=== PATIENT | female | born 1980 | race Caucasian/White ===

== ENCOUNTER 2017-04-28 07:47 | Day surgery (SDC) | payer BC ==
[2017-04-23 11:01] VITALS: BMI 19.6
[2017-04-28] MEDS ORDERED: LACTATED RINGERS SOLUTION 1,000 ML IV SCH (08:30)
[2017-04-28] MEDS ORDERED: oxyCODONE HCL 5 MG TABLET PO PRN (08:30)
[2017-04-28] MEDS ORDERED: ONDANSETRON 4 MG/2 ML VIAL IVPUSH PRN (08:30)
[2017-04-28] MEDS ORDERED: ACETAMINOPHEN 1000 MG/100 ML VIAL (NON FORMULARY) IVPB PRN (08:30)
--- NOTE | 2017-04-28 09:05 | HP ---
[facility]ellite [facility] - Chief Complaint Chief Complaint: left wrist mass History of Present Illness: growing left wrist mass History Source: Patient Limitations to Obtaining History: No Limitations - Past Medical History Allergies/Adverse Reactions: Allergies Allergy/AdvReac Type Severity Reaction Status Date / Time No Known Allergies Allergy Verified 04/28/17 08:15 ...LMP: 04/20/17 - Current Medications Current Medications: Home Medications Medication Instructions Recorded Cyanocobalamin Vit B-12 Inj. 1,000 mcg IJ MONTHLY 04/23/17 [Redisol] Hydrocodone/Acetaminophen [Vicodin 1 - 2 tab PO TID PRN #40 tablet 04/28/17 5-300 mg Tablet] MDD 6 Vitamin C/Biotin [Hair, Skin and 1 each PO DAILY 04/28/17 Nails Gummies] Satellite Physical Exam - Physical Examination Vital Signs: Vital Signs Period Temp Pulse Resp BP Sys/Menendez Pulse Ox Last 24 Hr 97.8 F 78 20 129/93 100 General Appearance: Well Nourished ENT: Clear Lung: Clear to auscultation Heart: Regular rate & rhythm Breasts: Soft Abdomen: Soft Extremities: No edema Satellite Impression/Plan - Impression/Plan Impression: left wrist mass, likely ganglion cyst Operative Procedure: excision mass left wrist Date to be Performed: 04/28/17
[2017-04-28] MEDS ORDERED: PROPOFOL 20 ML ONE ×3 (09:12)
[2017-04-28] MEDS ORDERED: MIDAZOLAM HCL 2 MG/2 ML SINGLE DOSE VIAL ONE (09:16)
[2017-04-28] MEDS ORDERED: ceFAZolin SODIUM 1 GM VIAL ONE (09:34)
[2017-04-28] MEDS ORDERED: ceFAZolin SODIUM 1 GM VIAL IVPB ONE (09:36)
[2017-04-28] MEDS ORDERED: BUPIVACAINE HCL/PF 0.5% (5MG/ML) 10 ML VIAL IJ ONE (09:42)
[2017-04-28] MEDS ORDERED: LIDOCAINE HCL 1%, 10 MG/ML (20ML VIAL) IJ ONE (09:42)
--- NOTE | 2017-04-28 10:15 | OP ---
Operative Note - Note: Operative Date: 04/28/17 Pre-Operative Diagnosis: left wrist mass Operation: excision mass left wrist, ganglion cyst Post-Operative Diagnosis: Same as Pre-op Surgeon: Kamlesh Yoon Anesthesiologist/WAITER/WAITRESS CABIN CLASS: Remi Mir Anesthesia: General, Local Specimens Removed: mass/ganglion left wrist Estimated Blood Loss (mls): 0 Drains, Volume Out (mls): 0 Blood Volume Replaced (mls): 0 Fluid Volume Replaced (mls): 500 Operative Report Dictated: Yes
--- NOTE | 2017-04-28 10:51 | OP ---
DATE OF OPERATION: 04/28/2017 PREOPERATIVE DIAGNOSIS: Left wrist volar radial ganglion cyst. POSTOPERATIVE DIAGNOSIS: Left wrist volar radial ganglion cyst. PROCEDURE PERFORMED: Left wrist excision mass/ganglion cyst. SURGEON: Kamlesh Flynn MD DAY GUARD: None. ANESTHESIOLOGIST: Remi Mir DO ANESTHESIA: MAC anesthesia, local injection of 8 mL of 0.5% Marcaine and 1% lidocaine mix. DRAINS: None. COMPLICATIONS: None. FLUID REPLACEMENT: 500 mL. BLOOD LOSS: None. BLOOD GIVEN: None. SPECIMEN: Mass left wrist, ganglion cyst. INDICATIONS: The patient is a 37-year-old female with the preoperative diagnosis of a growing mass in the volar radial aspect of the left wrist. After understanding the potential risks, complications, alternatives and benefits of surgery versus nonsurgical treatment, the patient elected to undergo this procedure. DESCRIPTION OF PROCEDURE: The patient was brought to the operating room, peripheral IV placed, and IV sedation given. One gram of IV Ancef was given. MAC anesthesia was induced. The left upper extremity was prepped and draped in the usual sterile fashion, elevated and exsanguinated with an Esmarch bandage, and the tourniquet inflated to 250 mmHg. A longitudinal incision was marked out as the large ganglion cyst was clearly intimate with the radial artery. I felt visualization would be much better in the longitudinal fashion than transversely. Eight mL of 0.5% Marcaine and 1% lidocaine mix was injected in and around the surgical incision. The incision was made with a number 15 scalpel blade. Subcutaneous hemostasis was achieved with bipolar cautery. Circumferential dissection was done with Littler scissors around the mass, which was clearly a fluid-filled ganglion cyst. At one point during the procedure it popped and classic thick nohxotcl-xnvx-dncy gel was expressed. The radial artery was adherent to the radial side of this mass, and great care was taken to preserve it and dissect it free of the mass. In one area, a very small portion of the ganglion cyst wall was left in place as it was completely adherent to the radial artery. I was able to identify the stalk of the mass and decapitate it at its base and cauterize at its base as it entered the volar wrist capsule. The specimen was passed off the field. The area was copiously irrigated and washed out. I did not see or feel any other abnormal tissue. The radial artery was completely intact. 4-0 undyed Vicryl was used to close the deep dermal layer. Final skin reapproximation was done with a running subcuticular 4-0 Biosyn stitch. The area was then washed and dried, and covered with Steri-Strips, 4 x 4's, Webril and Combigan. The tourniquet was taken down after a total tourniquet time of about 25 minutes. There were no complications during the case. The patient tolerated the procedure well and was brought to the ambulatory recovery room in stable condition. KAMLESH FLYNN M.D. [id number]
[2017-04-28 11:56] VITALS: TEMP 98.2
[2017-04-28 11:58] VITALS: BP 123/71; PULSE 73
--- NOTE | 2017-04-29 16:29 | PATH ---
Surgical Pathology Report Patient Name: MARILEE DELANEY [facility]. Rec. #: [id number] /Age/Gender: 1980 (Age: 37) / F Account: [id number] Location: [facility] SURGICAL Taken: 04/28/2017 Received: 04/28/2017 Reported: 04/29/2017 Physicians: Kamlesh Yoon M.D. Specimen(s) Received GANGLION CYSTLEFT WRIST VOLAR Clinical History Left wrist ganglion cyst Final Diagnosis SOFT TISSUE, LEFT VOLAR WRIST, EXCISION: GANGLION CYST. Electronically Signed Gary Bravo M.D. Gross Description Received in formalin labeled "left volar wrist ganglion cyst," is a 1.3 x 0.8 x 0.5 cm braxton, irregular portion of soft tissue, consistent with a disrupted cyst. The specimen is serially sectioned and entirely submitted in one cassette. /04/28/201704/28/2017
== END 2017-04-28 11:45 | disposition home or self-care (01) ==
LOC: JASU-SURG 07:47
PROVIDERS: ATTEND Orthopaedic Surgery
PROC: 0LB60ZZ Excision of Left Lower Arm and Wrist Tendon, Open Approach (ICD-10-PCS; principal; 2017-04-28 09:00)
DX: M67.432 Ganglion, left wrist (principal)
CPT/HCPCS: 84703; 88304-TC; 94760